=== PATIENT | female | born 1945 | race Caucasian/White ===

== ENCOUNTER 2018-09-18 19:00 | Outpatient (CLI) | payer MEDICARE, OTHER ==
[2015-02-06 12:02] VITALS: BMI 35.1
[~2018-09-18 19:00] MED LIST: COREG6.25 MG PO; CYCLOBENZAPRINE10 MG PO; CYMBALTA60 MG PO; DURAGESIC1 PATCH .7 TRANSDERM; FAMVIR500 MG PO; FLOVENT DI50 MCG/DIS INH; LIDEX 0.05% OIN15 GM TOPICAL; LORAZEPAM PO; MIRAPEX0.125 MG PO; PREMARIN0.9 MG PO; PREMARIN1.25 MG PO; PRILOSEC10 MG PO; PROTONIX40 MG PO; SYNTHROID25 MCG PO; TRIAMTERENE-HCT1 TA1 PO; VESICARE10 MG PO; VESICARE5 MG PO; ZOFRAN8 MG PO; ZYRTEC10 MG PO
== END 2018-09-18 23:59 | disposition home or self-care (01) ==
LOC: D.MAMMO 19:00
DX: Z12.31 Encounter for screening mammogram for malignant neoplasm of breast (principal)

== ENCOUNTER → 2018-10-26 08:00 | Outpatient (CLI) | payer MEDICARE, OTHER ==
[2015-02-06 12:02] VITALS: BMI 35.1
== END | disposition home or self-care (01) ==
LOC: D.MAMMO 08:00
DX: R92.8 Other abnormal and inconclusive findings on diagnostic imaging of breast (principal)

== ENCOUNTER → 2020-06-26 13:45 | Outpatient (CLI) | payer MEDICARE, BC ==
[2015-02-06 12:02] VITALS: BMI 35.1
== END | disposition home or self-care (01) ==
LOC: D.MAMMO 13:45
PROVIDERS: ATTEND Family Medicine
DX: Z12.31 Encounter for screening mammogram for malignant neoplasm of breast (principal)